=== PATIENT | female | born 1985 | race American Indian/Alaskan Native ===

== ENCOUNTER 2018-06-11 11:06 | Emergency (ER) | payer MEDICAID ==
[2018-06-11 11:27] VITALS: RESP 18; TEMP 99.4
--- NOTE | 2018-06-11 11:57 | ED PDOC ---
Arrival/HPI - General Chief Complaint: Female Genitourinary Time Seen by Provider: 06/11/18 11:14 Historian: Patient - History of Present Illness Narrative History of Present Illness (Text): 06/11/18 11:57 33 year old female, whose past medical history includes Fibroids, presents to the emergency department complaining cough for the past week and vaginal discomfort that began 2 days ago. Patient states she has been coughing up brownish color phlegm, for the past week and has been taking Robitussin with no relief. Patient denies getting the flu shot, any sick contact, recent travel, or any associated fever. Patient also is complaining of vaginal discomfort for the past 2 days. Patient is currently on her menstrual period that began 2 days ago. She describes the discomfort as a constant throbbing and burning sensation. She noted white colored and thick discharge 3 days ago. Patient reports dysuria, but denies any fever, chills, chest pain, shortness of breath, nausea, vomiting, diarrhea, back pain, neck pain, headache, dizziness, or any other complaints. PMD: Dr. Blue Time/Duration: Other Symptom Onset: Gradual Symptom Course: Unchanged Activities at Onset: Light Context: Home Past Medical History - Provider Review Nursing Documentation Reviewed: Yes - Infectious Disease Hx of Infectious Diseases: None - Reproductive Menopause: No - Cardiac Hx Cardiac Disorders: No - Pulmonary Hx Respiratory Disorders: No - Renal Hx Renal Disorder: No - Psychiatric Hx Substance Use: No - Anesthesia Hx Anesthesia Reactions: No Family/Social History - Physician Review Nursing Documentation Reviewed: Yes Family/Social History: No Known Family HX Smoking Status: Current Some Days Smoker Hx Alcohol Use: Yes Frequency of alcohol use: Socially Hx Substance Use: No Allergies/Home Meds Allergies/Adverse Reactions: Allergies No Known Allergies Allergy (Verified 06/11/18 11:27) Review of Systems - Physician Review All systems were reviewed & negative as marked: Yes - Review of Systems Constitutional: absent: Fevers, Other (Chills) Respiratory: Cough. absent: SOB Cardiovascular: absent: Chest Pain Gastrointestinal: absent: Diarrhea, Nausea, Vomiting Genitourinary Female: Dysuria, Vaginal Discharge, Other (Vaginal discomfort) Musculoskeletal: absent: Back Pain, Neck Pain Neurological: absent: Headache, Dizziness Physical Exam Vital Signs Reviewed: Yes Vital Signs Temp Pulse Resp BP Pulse Ox 06/11/18 11:23 99.4 F 100 H 18 166/93 H 99 Temperature: Afebrile Blood Pressure: Hypertensive Pulse: Tachycardic Respiratory Rate: Normal Appearance: Positive for: Well-Appearing, Non-Toxic, Comfortable Pain Distress: None Mental Status: Positive for: Alert and Oriented X 3 - Systems Exam Head: Present: Atraumatic, Normocephalic Pupils: Present: PERRL Extroacular Muscles: Present: EOMI Conjunctiva: Present: Normal Mouth: Present: Moist Mucous Membranes Neck: Present: Normal Range of Motion Respiratory/Chest: Present: Clear to Auscultation, Good Air Exchange. No: Respiratory Distress, Accessory Muscle Use Cardiovascular: Present: Regular Rate and Rhythm, Normal S1, S2. No: Murmurs Abdomen: No: Tenderness, Distention, Peritoneal Signs Back: Present: Normal Inspection Upper Extremity: Present: Normal Inspection. No: Cyanosis, Edema Lower Extremity: Present: Normal Inspection. No: Edema Neurological: Present: GCS=15, CN II-XII Intact, Speech Normal Skin: Present: Warm, Dry, Normal Color. No: Rashes Psychiatric: Present: Alert, Oriented x 3, Normal Insight, Normal Concentration Medical Decision Making ED Course and Treatment: 06/11/18 11:57 Impression: 33 year old female presents complaining of cough for the past week and constant vaginal discomfort associated with dysuria that began 2 days ago. Patient is currently on her menstrual period. Plan: -- Chest X-ray -- Urine Culture -- Urinalysis w/ micro -- Reassess and disposition Progress Notes: PROCEDURE: Chest X-ray Dictator : Madie Fenton MD Report Date : 06/11/2018 13:09:42 IMPRESSION: No focal consolidation identified. 06/11/18 13:34 On re-evaluation, patient is in no acute distress. I have discussed the results and plan with the patient, who expresses understanding. Patient in agreement with plan to be discharged home with prescription of Macrobid. Patient is stable for discharge. Patient was instructed to follow up with physician or return if symptoms worsen or new concerning symptoms arise. - Lab Interpretations I have reviewed the lab results: Yes - RAD Interpretation Lieutenant General: Radiologist - Scribe Statement The provider has reviewed the documentation as recorded by the Alvaro Gomez Provider Scribe Attestation: All medical record entries made by the Alvaro were at my direction and personally dictated by me. I have reviewed the chart and agree that the record accurately reflects my personal performance of the history, physical exam, medical decision making, and the department course for this patient. I have also personally directed, reviewed, and agree with the discharge instructions and disposition. Disposition/Present on Arrival - Present on Arrival Any Indicators Present on Arrival: No History of DVT/PE: No History of Uncontrolled Diabetes: No Urinary Catheter: No History of Decub. Ulcer: No History Surgical Site Infection Following: None - Disposition Have Diagnosis and Disposition been Completed?: Yes Diagnosis: UTI (urinary tract infection) Disposition: HOME/ ROUTINE Disposition Time: 12:25 Condition: GOOD Discharge Instructions (ExitCare): Urinary Tract Infection, Adult (DC) Additional Instructions: FELIZ ZAMUDIO, thank you for letting us take care of you today. The emergency medical care you received today was directed at your acute symptoms. If you were prescribed any medication, please fill it and take as directed. It may take several days for your symptoms to resolve. Return to the Emergency Department if your symptoms worsen, do not improve, or if you have any other problems. Please contact your doctor or call one of the physicians/clinics you have been referred to that are listed on the Patient Visit Information form that is included in your discharge packet. Bring any paperwork you were given at discharge with you along with any medications you are taking to your follow up visit. Our treatment cannot replace ongoing medical care by a primary care provider outside of the emergency department. Thank you for allowing the [facility] team to be part of your care today. Follow up with your primary care doctor in 3-4 days for re-evaluation and further management. Prescriptions: Nitrofurantoin Macrocrystals [Macrobid] 100 mg PO BID #10 cap Referrals: [employer], [Non-Staff] - Follow up with primary Forms: [address] (Croatian)
[2018-06-11 12:25] LABS: PH,URINE 6.5 (4.7-8.0); URINE APPEARANCE BLOODY (CLEAR); URINE BILIRUBIN MODERATE (NEGATIVE); URINE BLOOD LARGE (NEGATIVE); URINE COLOR RED (YELLOW); URINE GLUCOSE (UA) 100 mg/dL (NEGATIVE); URINE LEUKOCYTE ESTERASE MODERATE Leu/uL (NEGATIVE); URINE PROTEIN >=300 mg/dL (<30 mg/dL); URINE UROBILINOGEN >=8.0 E.U./dL (<1 E.U./dL)
[2018-06-11 12:40] LABS: URINE EPITHELIAL CELLS 0 - 2 /hpf (0-5); URINE RBC TNTC /hpf (0-2)
--- NOTE | 2018-06-11 13:13 | RAD ---
HISTORY: cough r/o infiltrate COMPARISON: None available. TECHNIQUE: Chest PA and lateral FINDINGS: Examination limited by habitus. LUNGS: No focal consolidation. Please note that chest x-ray has limited sensitivity for the detection of pulmonary masses. PLEURA: No significant pleural effusion identified. No definite pneumothorax . CARDIOVASCULAR: Heart size appears within normal limits. No atherosclerotic calcification present. OSSEOUS STRUCTURES: No acute osseous abnormality identified. VISUALIZED UPPER ABDOMEN: Unremarkable. OTHER FINDINGS: None. IMPRESSION: No focal consolidation identified.
[2018-06-11 13:44] VITALS: BP 135/68; PULSE 66; O2SAT 98
== END 2018-06-11 13:45 | disposition home or self-care (01) ==
LOC: MERGE 11:06 → ED 11:06
DX: N39.0 Urinary tract infection, site not specified (principal)

== ENCOUNTER 2018-06-27 10:06 | Emergency (ER) | payer MEDICAID ==
[2018-06-27 10:34] VITALS: RESP 18; TEMP 98.3; O2SAT 99; BMI 29.0
--- NOTE | 2018-06-27 11:28 | ED PDOC ---
Arrival/HPI - General Chief Complaint: Cough, Cold, Congestion Time Seen by Provider: 06/27/18 11:01 Historian: Patient - History of Present Illness Narrative History of Present Illness (Text): 06/27/18 11:06 33 year old female, with past medical history of hypertension, presents to the Emergency department complaining of productive cough, generalized body aches and sore throat since 2 weeks. Patient informs recent completion of antibiotics use secondary to UTI. Patient denies any other associated somatic complaints. Patient denies any fever, chills, nausea, vomiting, diarrhea, abdominal pain, chest pain, shortness of breath, headache, dizziness or any other complaints. Patient denies any recent travel or sick contact. Time/Duration: > week Symptom Onset: Gradual Symptom Course: Unchanged Activities at Onset: Light Context: Home Past Medical History - Provider Review Nursing Documentation Reviewed: Yes - Infectious Disease Hx of Infectious Diseases: None - Cardiac Hx Cardiac Disorders: Yes Hx Hypertension: Yes - Pulmonary Hx Respiratory Disorders: No - Neurological Hx Neurological Disorder: No - HEENT Hx HEENT Disorder: No - Renal Hx Renal Disorder: No - Endocrine/Metabolic Hx Endocrine Disorders: No - Hematological/Oncological Hx Blood Disorders: Yes Hx Anemia: Yes - Integumentary Hx Dermatological Disorder: No - Musculoskeletal/Rheumatological Hx Musculoskeletal Disorders: No - Gastrointestinal Hx Gastrointestinal Disorders: No - Genitourinary/Gynecological Hx Genitourinary Disorders: Yes Other/Comment: pelvic pain - Psychiatric Hx Psychophysiologic Disorder: No Hx Substance Use: No - Surgical History Hx Breast Biopsy: Yes (right) Hx Section: Yes Other/Comment: ectopic - Anesthesia Hx Anesthesia Reactions: No Family/Social History - Physician Review Nursing Documentation Reviewed: Yes Family/Social History: Unknown Family HX Smoking Status: Former Smoker Hx Alcohol Use: Yes Hx Substance Use: No Allergies/Home Meds Allergies/Adverse Reactions: Allergies No Known Allergies Allergy (Verified 06/13/18 07:58) Home Medications: Home Meds Medication Instructions Recorded Confirmed amLODIPine [Norvasc] 10 mg PO DAILY 09/25/16 06/27/18 Review of Systems - Physician Review All systems were reviewed & negative as marked: Yes - Review of Systems Constitutional: absent: Fevers ENT: Sore Throat Respiratory: Cough. absent: SOB Cardiovascular: absent: Chest Pain Gastrointestinal: absent: Abdominal Pain, Diarrhea, Nausea, Vomiting Genitourinary Female: absent: Dysuria Musculoskeletal: Myalgias (Generalized). absent: Back Pain, Neck Pain Skin: absent: Rash Neurological: absent: Headache, Dizziness Physical Exam Vital Signs Reviewed: Yes Vital Signs Temp Pulse Resp BP Pulse Ox 06/27/18 11:16 68 18 134/68 99 06/27/18 10:33 98.3 F 72 18 136/71 99 Temperature: Afebrile Blood Pressure: Normal Pulse: Regular Respiratory Rate: Normal Appearance: Positive for: Well-Appearing, Non-Toxic, Comfortable Pain Distress: None Mental Status: Positive for: Alert and Oriented X 3 - Systems Exam Head: Present: Atraumatic, Normocephalic Pupils: Present: PERRL Extroacular Muscles: Present: EOMI Conjunctiva: Present: Normal Pharnyx: Present: ERYTHEMA (Mild) Neck: Present: Normal Range of Motion Respiratory/Chest: Present: Clear to Auscultation, Good Air Exchange. No: Respiratory Distress, Accessory Muscle Use Cardiovascular: Present: Regular Rate and Rhythm, Normal S1, S2. No: Murmurs Abdomen: No: Tenderness, Distention, Peritoneal Signs Back: Present: Normal Inspection Upper Extremity: Present: Normal Inspection. No: Cyanosis, Edema Lower Extremity: Present: Normal Inspection. No: Edema Neurological: Present: GCS=15, CN II-XII Intact, Speech Normal Skin: Present: Warm, Dry, Normal Color. No: Rashes Psychiatric: Present: Alert, Oriented x 3, Normal Insight, Normal Concentration Medical Decision Making ED Course and Treatment: 06/27/18 11:06 Impression: 33 year old female presents to the Emergency department complaining of cough, generalized myalgia and sore throat. suspect flu vs strep vs post viral. Plan: -- Chest X-ray -- Tylenol -- Rapid Flu -- Rapid Strep -- Reassess and disposition Prior Visits: Notes and results from previous visits were reviewed. Progress Notes: 06/27/18 16:53cxr neg, pt in nad. flu step neg. suspect post viral cough. cxr neg. pt speaking full sentences in nad. on phone in nad. stable for dc. - RAD Interpretation Radiology Orders: 06/27/18 11:06 CHEST TWO VIEWS (PA/LAT) [RAD] Stat - Medication Orders Current Medication Orders: Discontinued Medications Acetaminophen (Tylenol 325mg Tab) 650 mg PO STAT STA Stop: 06/27/18 11:08 - Scribe Statement The provider has reviewed the documentation as recorded by the Scribe Nathan Worrell. All medical record entries made by the Madeleineibe were at my direction and personally dictated by me. I have reviewed the chart and agree that the record accurately reflects my personal performance of the history, physical exam, medical decision making, and the department course for this patient. I have also personally directed, reviewed, and agree with the discharge instructions and disposition. Disposition/Present on Arrival - Present on Arrival Any Indicators Present on Arrival: No History of DVT/PE: No History of Uncontrolled Diabetes: No Urinary Catheter: No History of Decub. Ulcer: No History Surgical Site Infection Following: None - Disposition Have Diagnosis and Disposition been Completed?: Yes Diagnosis: Viral syndrome Disposition: HOME/ ROUTINE Disposition Time: 12:00 Condition: STABLE Discharge Instructions (ExitCare): Cough, Adult (DC), Viral Syndrome (DC) Additional Instructions: follow up with your doctor/clinic. return to er with worsening symptoms or concerns. Referrals: [facility] [Outside] - Follow up with primary [facility] [Outside] - Follow up with primary Forms: [facility] (Macedonian), WORK NOTE
[2018-06-27 12:14] LABS: INFLUENZA A B NEGATIVE FOR FLU A/B (NEGATIVE)
[2018-06-27 12:45] VITALS: BP 132/64; PULSE 64
--- NOTE | 2018-06-27 13:08 | RAD ---
Date of service: 06/27/2018 HISTORY: cough COMPARISON: 06/11/2018 TECHNIQUE: Chest PA and lateral FINDINGS: LUNGS: No active pulmonary disease. PLEURA: No significant pleural effusion identified. No pneumothorax apparent. CARDIOVASCULAR: No aortic atherosclerotic calcification present. Normal cardiac size. No pulmonary vascular congestion. OSSEOUS STRUCTURES: No significant abnormalities. VISUALIZED UPPER ABDOMEN: Normal. OTHER FINDINGS: None. IMPRESSION: No active disease.
== END 2018-06-27 13:02 | disposition home or self-care (01) ==
LOC: ED 10:06
DX: B34.9 Viral infection, unspecified (principal); I10 Essential (primary) hypertension; Z87.891 Personal history of nicotine dependence

== ENCOUNTER 2018-09-14 18:53 | Emergency (ER) | payer MEDICAID ==
[2018-09-14 19:06] VITALS: BMI 31.9
[2018-09-14 19:07] VITALS: TEMP 98.1; O2SAT 99
--- NOTE | 2018-09-14 20:05 | ED PDOC ---
Arrival/HPI - General Chief Complaint: Breast Problem Time Seen by Provider: 09/14/18 18:59 Historian: Patient - History of Present Illness Narrative History of Present Illness (Text): 09/14/18 20:02 33-year-old female presents today with right breast pain. Patient states that for the past 5 days she has been having pain to the right breast. She denies chest pain or shortness of breath denies fevers or chills. She denies any trauma or injury. Patient denies signs of infection. Patient denies family history of breast cancer. Patient states when she was 11 she did have a cyst removed from the right breast. She denies any palpable nodule. pt states at times she has some upper back pain. No other complaints Time/Duration: Other (5 days) Symptom Onset: Gradual Symptom Course: Worsening Quality: Aching, Other Severity Level: Moderate Past Medical History - Provider Review Nursing Documentation Reviewed: Yes - Travel History Have you recently traveled outside [place] w/in the past 3 mons?: No - Infectious Disease Hx of Infectious Diseases: None - Cardiac Hx Cardiac Disorders: Yes Hx Hypertension: Yes - Pulmonary Hx Respiratory Disorders: No - Neurological Hx Neurological Disorder: No - HEENT Hx HEENT Disorder: No - Renal Hx Renal Disorder: No - Endocrine/Metabolic Hx Endocrine Disorders: No - Hematological/Oncological Hx Blood Disorders: Yes Hx Anemia: Yes - Integumentary Hx Dermatological Disorder: No - Musculoskeletal/Rheumatological Hx Musculoskeletal Disorders: No - Gastrointestinal Hx Gastrointestinal Disorders: No - Genitourinary/Gynecological Hx Genitourinary Disorders: Yes Other/Comment: pelvic pain - Psychiatric Hx Psychophysiologic Disorder: No Hx Substance Use: No - Surgical History Hx Breast Biopsy: Yes (right) Hx Section: Yes Other/Comment: ectopic - Anesthesia Hx Anesthesia Reactions: No Family/Social History - Physician Review Nursing Documentation Reviewed: Yes Family/Social History: Unknown Family HX Smoking Status: Former Smoker Hx Alcohol Use: Yes Hx Substance Use: No Allergies/Home Meds Allergies/Adverse Reactions: Allergies No Known Allergies Allergy (Verified 09/14/18 19:09) Home Medications: Home Meds Medication Instructions Recorded Confirmed amLODIPine [Norvasc] 10 mg PO DAILY 09/25/16 09/14/18 Review of Systems - Review of Systems Constitutional: absent: Fatigue, Fevers Respiratory: absent: SOB, Cough Cardiovascular: absent: Chest Pain, Palpitations Gastrointestinal: absent: Abdominal Pain, Constipation, Diarrhea, Nausea, Vomiting Genitourinary Female: Other (right breast pain). absent: Dysuria, Frequency, Hematuria Musculoskeletal: Back Pain (upperback pain). absent: Arthralgias, Neck Pain Skin: absent: Rash, Pruritis Neurological: absent: Headache, Dizziness Psychiatric: absent: Anxiety, Depression, Suicidal Ideation Physical Exam Vital Signs Reviewed: Yes Vital Signs Temp Pulse Resp BP Pulse Ox 09/14/18 19:06 98.1 F 99 H 19 132/82 99 Temperature: Afebrile Blood Pressure: Normal Pulse: Regular Respiratory Rate: Normal Appearance: Positive for: Well-Appearing, Non-Toxic, Comfortable Pain Distress: None Mental Status: Positive for: Alert and Oriented X 3 - Systems Exam Head: Present: Atraumatic Mouth: Present: Moist Mucous Membranes Neck: Present: Normal Range of Motion Respiratory/Chest: Present: Clear to Auscultation, Good Air Exchange, Tender to Palpation (+ ttp over right breast tail and entire breast, no edema, no erythema; no ecchymosis. no palpable mass. no abscess. ). No: Respiratory Distress, Accessory Muscle Use Cardiovascular: Present: Regular Rate and Rhythm, Normal S1, S2. No: Murmurs Abdomen: No: Tenderness Back: Present: Normal Inspection. No: CVA Tenderness, Midline Tenderness Medical Decision Making ED Course and Treatment: 09/14/18 20:10 33-year-old female with a 5-day history of right breast pain no trauma or injury Patient with palpable breast tenderness no signs of infection no palpable mass. Chest x-ray shows no infiltrate or effusion. No visualized mass. Toradol given for pain. UA; no leukocytes, trace blood Patient reassessment: Patient is nontoxic well-appearing no distress with stable vital signs. I advised the patient the need for follow-up with a vaccine manager/breast specialist for referral for outpatient mammogram to rule out cancerous lesion. Advised patient to return if signs of infection develop. Stressed the importance for immediate f/u. advised patient of blood in the urine and need for f/u with PMD. Patient verbalizes understanding of discharge instructions and need for immediate followup. All aspects of this case were discussed the attending of record. Impression: Breast pain, hematuria Motrin every 6 hours as needed for pain Follow-up with a vaccine manager within the next 2 days for referral for mammogram. follow-up with primary care physician within the next 2 days for referral for mammogram. Return immediately if signs of infection develop: High fevers, increasing pain, increasing redness, increasing swelling. Return if any other concerning symptoms develop. Reassessment Condition: Re-examined, Improved - RAD Interpretation Radiology Orders: 09/14/18 19:43 CHEST TWO VIEWS (PA/LAT) [RAD] Stat - Medication Orders Current Medication Orders: Discontinued Medications Ketorolac Tromethamine (Toradol) 60 mg IM STAT STA Stop: 09/14/18 19:55 Disposition/Present on Arrival - Present on Arrival Any Indicators Present on Arrival: No History of DVT/PE: No History of Uncontrolled Diabetes: No Urinary Catheter: No History of Decub. Ulcer: No History Surgical Site Infection Following: None - Disposition Have Diagnosis and Disposition been Completed?: Yes Diagnosis: Breast pain, Hematuria Disposition: HOME/ ROUTINE Disposition Time: 20:17 Patient Plan: Discharge Patient Problems: Current Active Problems Problem Status Onset Breast pain Acute Condition: GOOD Discharge Instructions (ExitCare): Common Breast Problems, Mastalgia (DC) Additional Instructions: Motrin every 6 hours as needed for pain Follow-up with a vaccine manager within the next 2 days for referral for mammogram. follow-up with primary care physician within the next 2 days for referral for mammogram. Return immediately if signs of infection develop: High fevers, increasing pain, increasing redness, increasing swelling. Return if any other concerning symptoms develop. Prescriptions: Ibuprofen [Motrin] 600 mg PO Q6H PRN #20 tab PRN Reason: pain/fever reduction traMADol [Ultram] 50 mg PO Q6H PRN #6 tab PRN Reason: moderate to severe pain Referrals: Minesh Romeo MD [Staff Provider] - Follow up with primary Liberty Walter MD [Medical Doctor] - Follow up with primary Cristina Macdonald MD [Medical Doctor] - Follow up with primary [facility] [Outside] - Follow up with primary Forms: [facility] (Gambian), WORK NOTE
[2018-09-14 21:16] LABS: URINE BILIRUBIN NEGATIVE (NEGATIVE); URINE BLOOD SMALL (NEGATIVE); URINE GLUCOSE (UA) NEGATIVE (NEGATIVE); URINE LEUKOCYTE ESTERASE NEGATIVE Leu/uL (NEGATIVE); URINE PROTEIN TRACE mg/dL (<30 mg/dL); URINE UROBILINOGEN 0.2 E.U./dL (<1 E.U./dL)
[2018-09-14 21:17] LABS: URINE APPEARANCE SL CLOUDY (CLEAR); URINE COLOR YELLOW (YELLOW)
[2018-09-14 21:26] VITALS: BP 128/74; PULSE 85; RESP 18
[2018-09-14 21:35] LABS: URINE BACTERIA MANY /hpf
--- NOTE | 2018-09-15 10:07 | RAD ---
Date of service: 09/14/2018 HISTORY: right breast pain COMPARISON: 06/27/2018 TECHNIQUE: Chest PA and lateral FINDINGS: LUNGS: No active pulmonary disease. PLEURA: No significant pleural effusion identified. No pneumothorax apparent. CARDIOVASCULAR: No aortic atherosclerotic calcification present. Normal cardiac size. No pulmonary vascular congestion. OSSEOUS STRUCTURES: No significant abnormalities. VISUALIZED UPPER ABDOMEN: Normal. OTHER FINDINGS: None. IMPRESSION: No active disease.
== END 2018-09-14 21:35 | disposition home or self-care (01) ==
LOC: ED 18:53
DX: N64.4 Mastodynia (principal); R31.9 Hematuria, unspecified; I10 Essential (primary) hypertension; Z87.891 Personal history of nicotine dependence
CPT/HCPCS: 71046; 81001; 81025; 87086; 96372; 99283; J1885